=== PATIENT | male | born 1985 | race Caucasian/White ===

== ENCOUNTER 2020-08-19 07:30 | Day surgery (SDC) | payer OTHER ==
[2020-08-16 14:55] LABS: COVID AG,FIA SOURCE NASOPHARYNGEAL
[~2020-08-19] VITALS: Ht 180.3 cm; Wt 51.1 kg
[~2020-08-19 07:30] MED LIST: SODIUM CHLORIDE 0.9% 1,000 ML IV ONE; SODIUM CHLORIDE 0.9% 1,000 ML ONE
[2020-08-19] MEDS ORDERED: PROPOFOL 1% 20 ML VIAL IVP ONE (07:31)
[2020-08-19] MEDS ORDERED: LIDOCAINE/PF 2% 5 ML VIAL IM ONE (07:31)
[2020-08-19 08:40] LABS: GLUCOMETER DEV NAME(LOC) SDS.; GLUCOSE,POINT OF CARE 383 MG/DL (70-110)
[2020-08-19] MEDS ORDERED: INSULIN REGULAR, HUMAN 100 UNITS/ML SQ ONE (10:15)
[2020-08-19 11:45] LABS: GLUCOMETER DEV NAME(LOC) SDS.; GLUCOSE,POINT OF CARE 381 MG/DL (70-110)
== END 2020-08-19 12:35 | disposition home or self-care (01) ==
LOC: SURGERY 07:30
PROVIDERS: ATTEND Internal Medicine Gastroenterology
DX: R63.4 Abnormal weight loss (principal); R19.7 Diarrhea, unspecified; K63.89 Other specified diseases of intestine; E10.9 Type 1 diabetes mellitus without complications; Z79.899 Other long term (current) drug therapy; Z88.0 Allergy status to penicillin; Z98.890 Other specified postprocedural states; Z83.3 Family history of diabetes mellitus
CPT/HCPCS: 45380; 82962; 87426; 88305; C9803; J2704; J3490; J7030